=== PATIENT | female | born 1980 | race Caucasian/White ===

== ENCOUNTER 2020-12-01 09:40 | Outpatient (REF) | payer OTHER, SELFPAY ==
[2020-12-02 14:07] LABS: CT PCR NOT DETECTED (Not Detect.); NG PCR NOT DETECTED (Not Detect.)
[2020-12-03 15:18] LABS: BV Int Neg Control Negative (Negative); BV Int Pos Control Positive (Positive)
[2020-12-07 10:11] LABS: HPV mRNA E6/E7 rflx Not Detected (Not Detected)
== END 2020-12-01 09:41 | disposition home or self-care (01) ==
LOC: HO.LAB 09:40
PROVIDERS: Visit Provider Advanced Practice Midwife
DX: Z01.411 Encounter for gynecological examination (general) (routine) with abnormal findings (principal); Z11.51 Encounter for screening for human papillomavirus (HPV); T83.32XA Displacement of intrauterine contraceptive device, initial encounter; N85.2 Hypertrophy of uterus; N39.3 Stress incontinence (female) (male); N89.8 Other specified noninflammatory disorders of vagina; Z87.42 Personal history of other diseases of the female genital tract; Z20.2 Contact with and (suspected) exposure to infections with a predominantly sexual mode of transmission
CPT/HCPCS: 87480; 87491; 87510; 87591; 87624; 87660; 88142

== ENCOUNTER 2020-12-15 13:06 | Outpatient (REF) | payer OTHER, SELFPAY ==
--- NOTE | ~2020-12-15 | US_ITS ---
EXAMINATION: US PELVIS CLINICAL INFORMATION: Uterine hypertrophy. COMPARISON: Obstetrical ultrasound dated 10/17/2015. TECHNIQUE: Ultrasound of the pelvis is performed using both transabdominal and transvaginal transducers along with Doppler. Transvaginal imaging is performed due to inadequate visualization transabdominally. FINDINGS: Uterus: Anteverted/anteflexed measuring 13.5 x 9.6 x 11.2 cm. A large intramural fibroid is seen at the level the fundus measuring approximately 10.1 x 8.5 x 8.4 cm. Color Doppler showed no abnormal vascular flow. The endometrial stripe measures up to 1.8 cm. A linear echogenic focus is seen within the endometrial canal without surrounding abnormality. The proximal and distal components are suboptimally visualized. The cervix is closed without overt abnormality. Right ovary: Not confidently identified. No overt right adnexal abnormality. Left ovary: 3.4 x 2.0 x 2.9 cm with a volume of 10.3 mL. Color Doppler showed no abnormal vascular flow. Urinary bladder: Mildly distended without focal abnormality. US/US pelvic and transvaginal IMPRESSION: 1. Dominant intramural fibroid measuring up to 10.1 cm. 2. Thickened endometrial stripe without focal abnormality. This is displaced and distorted by the large fibroid. A probable IUD is noted within the endometrial canal without surrounding abnormality in the visualized portions. The proximal and distal components of the IUD were not well-visualized and suboptimally evaluated. 3. Nonvisualization of the right ovary without overt right adnexal abnormality. Unremarkable left ovary.
== END 2020-12-15 13:07 | disposition home or self-care (01) ==
LOC: HO.HMGCX 13:06
PROVIDERS: PCP Internal Medicine; Visit Provider Advanced Practice Midwife
DX: N85.2 Hypertrophy of uterus (principal); N39.3 Stress incontinence (female) (male); T83.32XA Displacement of intrauterine contraceptive device, initial encounter
CPT/HCPCS: 76830; 76856

== ENCOUNTER → 2020-12-19 10:48 | Outpatient (BNVA) | payer OTHER, SELFPAY | PROVIDERS: Visit Provider Advanced Practice Midwife ==

== ENCOUNTER 2021-03-29 09:15 | Outpatient (REF) | payer OTHER, SELFPAY ==
[2021-03-29 16:39] LABS: CT PCR NOT DETECTED (Not Detect.); NG PCR NOT DETECTED (Not Detect.)
== END 2021-03-29 09:16 | disposition home or self-care (01) ==
LOC: HO.LAB 09:15
PROVIDERS: Visit Provider Obstetrics & Gynecology
DX: N89.8 Other specified noninflammatory disorders of vagina (principal); R93.89 Abnormal findings on diagnostic imaging of other specified body structures; D25.1 Intramural leiomyoma of uterus; T83.32XA Displacement of intrauterine contraceptive device, initial encounter; Z87.42 Personal history of other diseases of the female genital tract
CPT/HCPCS: 87491; 87591; 88305; 99212

== ENCOUNTER → 2021-04-12 11:46 | Outpatient (BNVA) | payer OTHER, SELFPAY | PROVIDERS: PCP Internal Medicine; Visit Provider Obstetrics & Gynecology ==

== ENCOUNTER 2021-04-19 09:27 | Outpatient (REF) | payer OTHER, SELFPAY ==
--- NOTE | ~2021-04-19 | MR_ITS ---
EXAMINATION: MR PELVIS WITHOUT AND WITH CONTRAST CLINICAL INFORMATION: Intramural leiomyoma of uterus. Patient reports discomfort, pressure sensation. COMPARISON: Pelvic ultrasound from 12/15/2020 TECHNIQUE: MR imaging of the pelvis was performed using standard sequences on a high-field magnet without and with intravenous administration of 8.5 mL Gadavist. FINDINGS: The cervix and vaginal canal are normal. The cervix measures 4.2 cm in length. The anteflexed, anteverted uterus measures approximately 15 x 10.3 x 10.5 cm (cervix to fundus by AP by transverse dimensions). A large, vascular, contrast-enhancing uterine mass is predominantly located within the uterine body, centered anteriorly and to the right of midline, and it has submucosal extension. The mass currently measures 9.8 cm transverse, 8.9 cm AP and 11.8 cm craniocaudal, and it has a broad interface with the endometrium. This mass, compatible with leiomyoma, previously measured up to 10.1 cm maximum dimension on 12/15/2020. Prominent vessels are seen at the periphery of the lesion, which enhances uniformly with exception of a more central region of nonenhancing necrosis. The endometrium is compressed, displaced to the left of midline by the mass. Fluid occupies the endometrial cavity, which measures up to 3 cm AP, and focus of clot is present within the endometrium. The ovaries are normal. The right ovary is 1.9 x 2.4 x 2.7 cm and has a corpus luteum. The left ovary is 1.7 x 2.5 x 2.5 cm.. A peripheral follicle or small periovarian cyst at the posterior aspect of the ovary measures 1 cm AP. No suspicious adnexal lesion. No iliac or inguinal lymphadenopathy. Urinary bladder and urethra are normal. Incidentally noted is a small posterior annular fissure and minimal central disc protrusion at L4-L5. Also, there appears to be a minimal central disc protrusion at L5-S1. The visualized bones have normal marrow signal. MR/MR pelvis wo/w con IMPRESSION: Large submucosal uterine leiomyoma, as noted above, measures up to 11.8 cm maximum dimension (compared to 10.1 cm on 12/15/2020. Fluid and focus of clot are noted within the endometrium, which is displaced to the left of midline by the large uterine lesion which enhances uniformly after contrast administration with exception of a central region of necrosis.
== END 2021-04-19 09:28 | disposition home or self-care (01) ==
LOC: HO.MRI 09:27
PROVIDERS: PCP Internal Medicine; Visit Provider Obstetrics & Gynecology
DX: D25.1 Intramural leiomyoma of uterus (principal); Z87.42 Personal history of other diseases of the female genital tract
CPT/HCPCS: 72197; A9585

== ENCOUNTER → 2021-04-26 13:58 | Outpatient (BNVA) | payer OTHER, SELFPAY | PROVIDERS: PCP Internal Medicine; Visit Provider Obstetrics & Gynecology | DX: Z30.433 Encounter for removal and reinsertion of intrauterine contraceptive device (principal); D25.0 Submucous leiomyoma of uterus | CPT/HCPCS: 99212 ==